=== PATIENT | male | born 1985 | race Caucasian/White ===

== ENCOUNTER 2016-09-25 18:50 | Emergency (ER) | payer MEDICAID ==
[2016-09-25] MEDS ORDERED: DIPH/PERTUSS(ACELL)/TETANUS VAC/PF 0.5 ML SYR (>=10YO) IM ONE (20:41)
--- NOTE | 2016-09-25 20:46 | ER Document Report ---
ED Wound - General Chief Complaint: Laceration to R big toe Stated Complaint: LACERATION TO RIGHT BIG TOE Time Seen by Provider: 09/25/16 20:21 Notes: The patient was a 31-year-old male who presents with a laceration on the top of his right toe after a sharp object cut him while working in the lawn. When his tetanus status was. Denies heavy bleeding, numbness or tingling. TRAVEL OUTSIDE OF THE [place] IN LAST 30 DAYS: No - Related Data Allergies/Adverse Reactions: No Known Allergies Allergy (Verified 12/29/14 13:28) Home Medications: Current Home Medications No Home Medications 09/25/16 [History] Past Medical History - General Information source: Patient - Social History Smoking Status: Unknown if Ever Smoked Family History: None, Reviewed & Not Pertinent, Malignancy Renal/ Medical History: Reports: Hx Kidney Stones. Denies: Hx Peritoneal Dialysis Musculoskeltal Medical History: Reports Hx Musculoskeletal Trauma Traumatic Medical History: Reports: Hx Fractures - wrist Past Surgical History: Reports: Hx Herniorrhaphy, Hx Inguinal Hernia - Immunizations Immunizations up to date: Yes Hx Diphtheria, Pertussis, Tetanus Vaccination: Yes Review of Systems - Review of Systems Notes: REVIEW OF SYSTEMS: CONSTITUTIONAL: -fevers, -chills EENT: -eye pain, -difficulty swallowing, -nasal congestion CARDIOVASCULAR:-chest pain, -syncope. RESPIRATORY: -cough, -SOB GASTROINTESTINAL: -abdominal pain, -nausea, -vomiting, -diarrhea GENITOURINARY: -dysuria, -hematuria MUSCULOSKELETAL: -back pain, -neck pain SKIN: +right toe lac HEMATOLOGIC: -easy bruising or bleeding. LYMPHATIC: -swollen, enlarged glands. NEUROLOGICAL: -altered mental status or loss of consciousness, -headache, - neurologic symptoms PSYCHIATRIC: -anxiety, -depression. ALL OTHER SYSTEMS REVIEWED AND NEGATIVE. Physical Exam - Vital signs Vitals: Temp Pulse Resp BP Pulse Ox 98.4 F 69 16 148/95 H 98 09/25/16 19:01 09/25/16 19:01 09/25/16 19:01 09/25/16 19:01 09/25/16 19:01 - Notes Notes: PHYSICAL EXAMINATION: GENERAL: Well-appearing, well-nourished and in no acute distress. HEAD: Atraumatic, normocephalic. EYES: Pupils equal round and reactive to light, extraocular movements intact, sclera anicteric, conjunctiva are normal. ENT: nares patent, oropharynx clear without exudates. Moist mucous membranes. NECK: Normal range of motion, supple without lymphadenopathy LUNGS: Breath sounds clear to auscultation bilaterally and equal. No wheezes rales or rhonchi. HEART: Regular rate and rhythm without murmurs ABDOMEN: Soft, nontender, normoactive bowel sounds. No guarding, no rebound. No masses appreciated. EXTREMITIES: Right big toe with 2 cm superficial laceration on dorsal aspect of toe, normal range of motion, no pitting or edema. No cyanosis. NEUROLOGICAL: Cranial nerves grossly intact. Normal speech, normal gait. Normal sensory and motor exams. PSYCH: Normal mood, normal affect. Course - Re-evaluation Re-evalutation: Superficial laceration repaired and tetanus updated. No nailbed involvement. Instructed patient about watching for signs of infection and he understands. - Vital Signs Vital signs: Temp Pulse Resp BP Pulse Ox 98.4 F 69 16 148/95 H 98 09/25/16 19:01 09/25/16 19:01 09/25/16 19:01 09/25/16 19:01 09/25/16 19:01 Procedures - Laceration/Wound Repair Right Great toe Time completed: 21:00 Wound length (cm): 2 Wound's Depth, Shape: Superficial, Linear Laceration pre-procedure: Chloraprep applied Wound explored: Clean Irrigated w/ Saline (mLs): 1,000 Wound Repaired With: Steri-strips, Dermabond Post-procedure wound care: Sterile dressing applied Post-procedure NV exam normal: Yes Complications: No Discharge - Discharge Clinical Impression: Laceration of toe Qualifiers: Encounter type: initial encounter Toe: great toe Damage to nail status: without damage Foreign body presence: without foreign body Laterality: right Qualified Code(s): S91.111A - Laceration without foreign body of right great toe without damage to nail, initial encounter Condition: Good Disposition: HOME, SELF-CARE Additional Instructions: NON-SUTURED LACERATION: Your laceration did not require suturing. Some lacerations cannot be sutured because of increased infection risk, while others simply don't need stitches because they are shallow or very short. Your injury should be protected while it heals. Usually complete healing takes 10 to 14 days. Keep the dressing clean and dry, and change it every day. If you notice increasing pain, redness, swelling, drainage, or tender lumps in the armpit or groin above the injury, infection may be present. You should call the doctor at once. SOAP CLEANSING: Gently wash the wound daily using a mild soap (like Ivory, Phisoderm, Neutrogena). Use warm water, rubbing gently until all debris, ooze, and crusting have been washed from the wound. Allow to dry briefly (about 10 minutes) after cleaning. Repeat this cleansing at least three times a day for the first two days and then once or twice a day. ANTIBIOTIC OINTMENT PROTECTION: Your wounds are such that dressing them is not practical or optional. After cleansing, you should apply a thin coating of antibiotic ointment ( Bacitracin, not Neosporin) to the wounds at least three times daily. This lessens infection risk, and may decrease the amount of scarring. Use a q-tip or dull butter knife, not your finger, to apply this ointment. Any debris or ooze which builds up in the ointment should be gently rubbed off with a sterile gauze pad. Harder crusting may need to be gently scrubbed off with a clean wash cloth with soap and warm water, perhaps applying a warm, wet wash cloth to the wound for ten minutes first. Development of redness, severe itching, or blistering may mean allergy to the ointment. See the doctor. TETANUS IMMUNIZATION GIVEN: You have been given an immunization against tetanus. Please record this in your records. In general, a booster is needed only once every 10 years. The tetanus shot protects against tetanus or "lockjaw," which is a complication of certain wound infections (the tetanus shot cannot protect against the actual infection). The immunization site may become warm and red due to local reaction. If this occurs, apply warm compresses and take aspirin or ibuprofen to reduce inflammation and discomfort. Return for evaluation if the reaction becomes severe. FOLLOW-UP CARE: If you have been referred to another physician for follow-up care, call that physicians office for an appointment as you were instructed. If you experience a significant change in your laceration, or if you are concerned there may be an infection (swelling, redness, drainage, increasing tenderness, red streaks, tender lumps in the armpit or groin above the laceration, or fever) , return to the Emergency Department immediately re-evaluation. Forms: Elevated Blood Pressure
[2016-09-25] MEDS ORDERED: IBUPROFEN 600 MG TABLET PO ONE (20:58)
[2016-09-25 21:22] VITALS: BP 132/86
== END 2016-09-25 21:23 | disposition home or self-care (01) ==
LOC: ER 18:50
DX: S91.111A Laceration without foreign body of right great toe without damage to nail, initial encounter (principal); W27.8XXA Contact with other nonpowered hand tool, initial encounter; Y93.H9 Activity, other involving exterior property and land maintenance, building and construction; Z23 Encounter for immunization
CPT/HCPCS: 90471; 90715; 99283

== ENCOUNTER 2017-07-18 13:38 | Emergency (ER) | payer SELFPAY ==
[2017-07-18 13:56] VITALS: BP 123/74
[2017-07-18] MEDS ORDERED: IBUPROFEN 800 MG TABLET PO ONE (14:32)
[2017-07-18] MEDS ORDERED: BUPIVACAINE HCL 0.5 % INJ/PF 30 ML SDV INJ ONE (14:32)
[2017-07-18] MEDS ORDERED: PENICILLIN V POTASSIUM 500 MG TABLET PO ONE (14:32)
--- NOTE | 2017-07-18 14:59 | ER Document Report ---
HPI - HPI Pain Level: 4 Context: Patient is a 31-year-old male presents emergency department complaining of right lower toothache. Patient had his right lower wisdom tooth pulled on Sunday and was discharged without any antibiotics or pain medication. He admits to pain in that area. He has been following his weaning instructions as directed. He has not been smoking though he is a pack-a-day smoker. Denies any alcohol or drug use. Denies any fevers or chills, facial swelling. Past Medical History - Social History Smoking Status: Current Every Day Smoker Family History: None, Reviewed & Not Pertinent, Malignancy Renal/ Medical History: Reports: Hx Kidney Stones. Denies: Hx Peritoneal Dialysis Musculoskeltal Medical History: Reports Hx Musculoskeletal Trauma Traumatic Medical History: Reports: Hx Fractures - wrist Past Surgical History: Reports: Hx Herniorrhaphy, Hx Inguinal Hernia - Immunizations Immunizations up to date: Yes Hx Diphtheria, Pertussis, Tetanus Vaccination: Yes Vertical Provider Document - CONSTITUTIONAL Agree With Documented VS: Yes Notes: PHYSICAL EXAM GENERAL: Alert, interacts well. HEENT: NCAT, MMM, Uvula midline. Airway patent. No evidence of tonsillar enlargement, peritonsillar abscess, retropharyngeal abscess. #32 socket without purulent drianage, gingival inflammation. NEUROLOGICAL: Alert and oriented x4. Normal speech. PSYCH: Normal affect, normal mood. SKIN: Warm, dry, normal turgor. No rashes or lesions noted. - INFECTION CONTROL TRAVEL OUTSIDE OF THE [place] IN LAST 30 DAYS: No Course - Re-evaluation Re-evalutation: 07/18/17 14:49 Patient is a 31-year-old male who is hemodynamically stable, no acute distress afebrile. No evidence of periodontal abscess, purulent drainage. Presentation is consistent with dry socket. Discussed with patient pain management home and will discharge him on antibiotics given nature of inflamed gingival tissue. Discussed with him to continue with his wound care per recommendation from his dentist and to continue to avoid cigarette use. Discussed with him strict return precautions otherwise will discharge home with prescription Motrin and penicillin. - Vital Signs Vital signs: Temp Pulse Resp BP Pulse Ox 99.0 F 57 L 16 123/74 99 07/18/17 13:54 07/18/17 13:54 07/18/17 13:54 07/18/17 13:54 07/18/17 13:54 Procedures - Additional Procedures dental block Additional Procedures: Other - Patient received a 5 cc 0.5% bupivacaine inferior alveolar dental block of the right lower jaw with complete resolution of his pain and no complications Discharge - Discharge Clinical Impression: Dry socket Condition: Good Disposition: HOME, SELF-CARE Additional Instructions: You have been seen for dental pain. It is very important that you follow-up with a dentist for definitive care. Please return if you develop fever greater than 101, swelling in your face, vomiting, difficulty breathing or swallowing, or any other symptoms that are concerning to you. For pain you should take ibuprofen as directed Prescriptions: Ibuprofen [Motrin 800 mg Tablet] 800 mg PO Q8H PRN #30 tab PRN Reason: Penicillin V Potassium [Penicillin Vk 500 mg Tablet] 500 mg PO TID 7 Days #21 tablet
== END 2017-07-18 14:50 | disposition home or self-care (01) ==
LOC: ER 13:38
PROC: 3E0T3BZ Introduction of Anesthetic Agent into Peripheral Nerves and Plexi, Percutaneous Approach (ICD-10-PCS; principal; 2017-07-18)
DX: M27.3 Alveolitis of jaws (principal); F17.200 Nicotine dependence, unspecified, uncomplicated; Z87.442 Personal history of urinary calculi
CPT/HCPCS: 99282; 64400; J3490

== ENCOUNTER 2017-10-31 09:44 | Emergency (ER) | payer SELFPAY ==
[2017-10-31 09:50] VITALS: BP 123/79
--- NOTE | 2017-10-31 10:17 | ER Document Report ---
HPI - HPI Patient complains to provider of: Left nipple pain Pain Level: 2 Context: Patient is a 32-year-old healthy male complaining of pain under his left nipple 3 days. Patient denies any trauma, fever, swelling or redness. Patient does have a history of a cyst in that area several years ago. Associated Symptoms: None Exacerbated by: Denies Relieved by: Denies - ROS Systems Reviewed and Negative: Yes All other systems reviewed and negative - CARDIOVASCULAR Cardiovascular: REPORTS: Chest pain - nipple Past Medical History - General Information source: Patient - Social History Smoking Status: Current Every Day Smoker Frequency of alcohol use: None Drug Abuse: None Lives with: Family Family History: None, Reviewed & Not Pertinent, Malignancy Patient has suicidal ideation: No Patient has homicidal ideation: No Renal/ Medical History: Reports: Hx Kidney Stones. Denies: Hx Peritoneal Dialysis Musculoskeletal Medical History: Reports Hx Musculoskeletal Trauma Traumatic Medical History: Reports: Hx Fractures - wrist Past Surgical History: Reports: Hx Herniorrhaphy, Hx Inguinal Hernia - Immunizations Immunizations up to date: Yes Hx Diphtheria, Pertussis, Tetanus Vaccination: Yes Vertical Provider Document - CONSTITUTIONAL Agree With Documented VS: Yes Exam Limitations: No Limitations - INFECTION CONTROL TRAVEL OUTSIDE OF THE [place] IN LAST 30 DAYS: No - HEENT HEENT: Atraumatic, PERRLA - NECK Neck: Normal Inspection, Supple - RESPIRATORY Respiratory: Breath Sounds Normal, No Respiratory Distress Notes: Positive focal tenderness under left area left. No dimpling or discharge. No palpable mass. No erythema to surrounding area - CARDIOVASCULAR Cardiovascular: Regular Rate, Regular Rhythm - GI/ABDOMEN Gastrointestinal: Abdomen Soft - MUSCULOSKELETAL/EXTREMETIES Musculoskeletal/Extremeties: MAEW - NEURO Level of Consciousness: Awake, Alert, Appropriate - DERM Integumentary: Warm, Dry Course - Re-evaluation Re-evalutation: 10/31/17 10:14 No breast abscess or cellulitis appreciated. But patient is focally tender under that left Ladi. I will prescribe a short course of antibiotics prophylactically and provide ibuprofen for discomfort. Patient instructed to observe the area closely and if any redness or swelling occur follow-up with primary care or return to the ED. Home care, primary care follow-up and ED return precautions were discussed with patient. Patient is agreeable with plan and stable for discharge - Vital Signs Vital signs: Temp Pulse Resp BP Pulse Ox 97.6 F 65 14 123/79 100 07/18/18 09:48 10/31/17 09:48 10/31/17 09:48 10/31/17 09:48 10/31/17 09:48 Discharge - Discharge Clinical Impression: Breast pain, left Condition: Stable Disposition: HOME, SELF-CARE Instructions: Anti-Inflammatory Medication ([facility]), Chest Wall Pain ([facility]), Antibiotic Therapy ([facility]) Additional Instructions: Please observe the area closely for any redness or swelling Follow-up with primary care or return to the ED for any worsening Take medications as prescribed You may apply warm compresses to the area for comfort Prescriptions: Cephalexin Monohydrate [Keflex 500 mg Capsule] 500 mg PO QID #20 capsule Ibuprofen [Motrin 800 Mg Tablet] 800 mg PO Q6H #20 tablet
== END 2017-10-31 10:27 | disposition home or self-care (01) ==
LOC: ER 09:44
DX: N64.4 Mastodynia (principal); F17.200 Nicotine dependence, unspecified, uncomplicated
CPT/HCPCS: 99282

== ENCOUNTER 2018-12-15 16:35 | Emergency (ER) | payer SELFPAY ==
[2018-12-15 16:46] VITALS: BP 115/69
--- NOTE | 2018-12-15 18:47 | ER Document Report ---
HPI - HPI Patient complains to provider of: right forearm tingling/weakness Time Seen by Provider: 12/15/18 17:47 Onset: This morning Onset/Duration: Persistent Quality of pain: No pain Severity: Mild Context: 33 Yr old male pt, with the listed pmh, here for right forearm/hand weakness and tingling since this morning. unsure if he slept wrong or over did it. 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 he is right handed. no pain. no other numbness, weakness or tingling. no ams. no fevers, marinelli, or neck pain. no surgeries on this extremity. hasn't taken anything for his sx. no hx of this before. hasn't sought care until now. no pain anywhere else. pt able to walk. denies intoxication. sx worse with movement and palpation. better with rest. no other fall or trauma or associated sx. no other complaints at this time. no hx of carpal tunnel or dequervains. Exacerbated by: Movement Relieved by: Remaining still Similar symptoms previously: No Recently seen / treated by doctor: No - ROS Systems Reviewed and Negative: Yes All other systems reviewed and negative - To include 10 systems, unless mentioned in the hpi. Past Medical History - General Information source: Patient - Social History Smoking Status: Current Every Day Smoker Chew tobacco use (# tins/day): No Frequency of alcohol use: None Drug Abuse: None Lives with: Family Family History: Malignancy Patient has suicidal ideation: No Patient has homicidal ideation: No Renal/ Medical History: Reports: Hx Kidney Stones. Denies: Hx Peritoneal Dialysis Musculoskeletal Medical History: Reports Hx Musculoskeletal Trauma Traumatic Medical History: Reports: Hx Fractures - left wrist Past Surgical History: Reports: Hx Herniorrhaphy, Hx Inguinal Hernia - Immunizations Immunizations up to date: Yes Hx Diphtheria, Pertussis, Tetanus Vaccination: Yes Vertical Provider Document - CONSTITUTIONAL Agree With Documented VS: Yes Exam Limitations: No Limitations General Appearance: No Apparent Distress Notes: GENERAL_APPEARANCE: alert and oriented x 3, mood and affect wnl, cooperative, no obvious discomfort. Pleasant, young athletic appearing white male, smiling, speaking in full sentences, in no sign of pain or resp distress, easily sitting up, mother at bedside VITALS: reviewed, see vital signs table. HEAD: no_swelling\tenderness on the head, normocephalic, atraumatic NECK: supple, no_neck_tenderness. no midline ttp. no step offs or deformities. full rom and full strength. no sign of central cord syndrome, meningitis, or spinal cord involvement HEART: RRR LUNGS: CTAB, good air exchange diffusely BACK: no_back_tenderness EXTREMITIES: good pulse in all extremities, right arm: mild ttp over right brachioradialus proximally, he has no erythema, no swelling or atrophy, no other tenderness and no_abrasions\lacerations other than as noted. 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 Normal gait. brisk cap refill. no other shortening or rotation of the limb or obvious deformities to suggest trauma unless otherwise noted. no other swelling or ttp. neg kanavel sign. neg snuff box ttp. neg tinel and phalen. neg finklestein. no sign of gout, septic jt, or compartment syndrome. SKIN: warm, dry, good_color. no rash. no other grossly visible overlying skin changes to suggest trauma NEURO: cerebellar function intact, motor_intact and sensory_intact in injured_extremity. cranial nerves 2-12 intact - INFECTION CONTROL TRAVEL OUTSIDE OF THE [place] IN LAST 30 DAYS: No Course - Re-evaluation Re-evalutation: 12/15/18 18:43 Pt here for likely right radial nerve palsy. He was placed in a velcro cock-up wrist splint to wear for the next few days as needed for comfort or until seen by ortho. Will discharge him with naproxen. Advised no other NSAIDs with this. Advised rice therapy. Advised to follow-up with Ortho closely to ensure resolution of symptoms. advised to f/u with pcp/ortho in 1-2 days. return for any worsening symptoms. vss. well appearing. satting well on ra. neurononfocal unless mentioned otherwise. pt understands and agrees to plan. On reexam, pt improved with tx listed. remained stable. nontoxic. well appearing. pain controlled. tolerating po. requesting to go home. neurononfocal unless mentioned otherwise. Documentation achieved through voice recording which may lead to some occasional accidental typographical errors. Extensive efforts have been made to proof read documentation to make sure these are the least as possible. Category Date Time Status Splint [Immobilize Extrem/Crutch (ED)] NOW Care 12/15/18 18:42 Ordered - Vital Signs Vital signs: Temp Pulse Resp BP Pulse Ox 98.4 F 56 L 15 115/69 98 12/15/18 16:45 12/15/18 16:45 12/15/18 16:45 12/15/18 16:45 12/15/18 16:45 Discharge - Discharge Clinical Impression: Acute radial nerve palsy of right upper extremity Condition: Good Disposition: HOME, SELF-CARE Instructions: Radiculopathy ([facility]) Additional Instructions: Follow-up with PCP/ortho in 1 to 2 days. Return for any worsening symptoms. no other nsaids with the naproxen. rest and ice the area. wear the splint as needed for comfort for the next few days or until seen by ortho. Prescriptions: Naproxen 500 mg PO BID PRN #20 tablet PRN Reason: Referrals: LUI ANDRES JR, [ACTIVE PROVISIONAL STAFF] - Follow up in 3-5 days
== END 2018-12-15 18:59 | disposition home or self-care (01) ==
LOC: ER 16:35
DX: G56.31 Lesion of radial nerve, right upper limb (principal); R20.2 Paresthesia of skin; R53.1 Weakness; F17.200 Nicotine dependence, unspecified, uncomplicated
CPT/HCPCS: 99283; L3908

== ENCOUNTER 2019-01-07 20:25 | Emergency (ER) | payer SELFPAY ==
[2019-01-07] MEDS ORDERED: TETRACAINE HCL 0.5% OPH SOLN 4 ML OS ONE (21:09)
--- NOTE | 2019-01-07 21:10 | ER Document Report ---
ED Medical Screen (RME) - General Chief Complaint: Foreign Body in Eye Stated Complaint: PIECE OF WOOD IN LEFT EYE Time Seen by Provider: 01/07/19 21:07 Mode of Arrival: Ambulatory Information source: Patient Notes: This 33-year-old male presents to emergency department with possible foreign body in his left eye. Reports he was cutting wood some slipped in his left eye. He reports he may have gotten it out but his eye is still irritated. Does not wear contacts. I have greeted and performed a rapid initial assessment of this patient. A comprehensive ED assessment and evaluation of the patient, analysis of test results and completion of the medical decision making process will be conducted by additional ED providers. Dictation of this chart was performed using voice recognition software; therefore, there may be some unintended grammatical errors. TRAVEL OUTSIDE OF THE [place] IN LAST 30 DAYS: No - Related Data Allergies/Adverse Reactions: No Known Allergies Allergy (Verified 12/15/18 16:36) Past Medical History - Social History Chew tobacco use (# tins/day): No Frequency of alcohol use: None Drug Abuse: None Renal/ Medical History: Reports: Hx Kidney Stones. Denies: Hx Peritoneal Dialysis Musculoskeltal Medical History: Reports Hx Musculoskeletal Trauma Traumatic Medical History: Reports: Hx Fractures - left wrist Past Surgical History: Reports: Hx Herniorrhaphy, Hx Inguinal Hernia - Immunizations Immunizations up to date: Yes Hx Diphtheria, Pertussis, Tetanus Vaccination: Yes Physical Exam - Vital signs Vitals: Temp Pulse Resp BP Pulse Ox 98.0 F 71 16 125/83 98 01/07/19 20:41 01/07/19 20:41 01/07/19 20:41 01/07/19 20:41 01/07/19 20:41 Course - Vital Signs Vital signs: Temp Pulse Resp BP Pulse Ox 98.0 F 71 16 125/83 98 01/07/19 20:41 01/07/19 20:41 01/07/19 20:41 01/07/19 20:41 01/07/19 20:41
--- NOTE | 2019-01-07 23:10 | ER Document Report ---
ED General - General Chief Complaint: Foreign Body in Eye Stated Complaint: PIECE OF WOOD IN LEFT EYE Time Seen by Provider: 01/07/19 21:07 Mode of Arrival: Ambulatory TRAVEL OUTSIDE OF THE [place] IN LAST 30 DAYS: No - HPI Notes: 33-year-old male presents with left eye redness pain. 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 Since he has had increasing in gradual onset redness and burning. Moderate pain, throbbing, nonradiating. No visual changes. Tetanus up-to-date within 5 years. Worse with light. No other modifying factors, no other associated symptoms, no other provocative or palliative factors. - Related Data Allergies/Adverse Reactions: No Known Allergies Allergy (Verified 12/15/18 16:36) Past Medical History - General Information source: Patient - Social History Smoking Status: Current Every Day Smoker Chew tobacco use (# tins/day): No Frequency of alcohol use: None Drug Abuse: None Family History: None, Reviewed & Not Pertinent, Malignancy Patient has suicidal ideation: No Patient has homicidal ideation: No - Medical History Medical History: Negative Renal/ Medical History: Reports: Hx Kidney Stones. Denies: Hx Peritoneal Dialysis Musculoskeletal Medical History: Reports Hx Musculoskeletal Trauma Traumatic Medical History: Reports: Hx Fractures - left wrist Past Surgical History: Reports: Hx Herniorrhaphy, Hx Inguinal Hernia - Immunizations Immunizations up to date: Yes Hx Diphtheria, Pertussis, Tetanus Vaccination: Yes Review of Systems - Review of Systems Notes: Review of systems as in history of present illness, otherwise no significant headache, chest pain, abdominal pain. Physical Exam - Vital signs Vitals: Temp Pulse Resp BP Pulse Ox 98.0 F 71 16 125/83 98 01/07/19 20:41 01/07/19 20:41 01/07/19 20:41 01/07/19 20:41 01/07/19 20:41 - Notes Notes: General: Well devloped, no acute distress. HEENT: Normocephalic, atraumatic. Pupils equal round reactive to light. Mucosa moist. No JVD. Chest: No trauma, normal excursion. Respiratory: Good air exchange, normal excursion. Cardiac: Regular rhythm Abdomen: Soft, benign. Nondistended. Back: No asymmetry or gross abnormality. Motor: Grossly normal power and tone. Neurologic: Alert, nonfocal. Vascular: Well perfused Skin: No petechiae or purpura Ocular exam: Conjunctival injection is noted. No foreign body, lids are everted, no foreign body. No Piyush sign. No dye uptake with floor seen staining, no cell or flare - HEENT Visual acuity- Right eye: 20/20 Visual acuity- Left eye: 20/20 Visual acuity- Both eyes: 20/20 Corrective lenses worn: No Course - Re-evaluation Re-evalutation: 01/07/19 23:08 Well-appearing male with traumatic conjunctivitis, no evidence of foreign body or corneal abrasion. No evidence of perforation. Will treat proactively with antibiotic eyedrops, outpatient follow-up. - Vital Signs Vital signs: Temp Pulse Resp BP Pulse Ox 98.0 F 71 16 125/83 98 01/07/19 20:41 01/07/19 20:41 01/07/19 20:41 01/07/19 20:41 01/07/19 20:41 Discharge - Discharge Clinical Impression: Eye trauma, superficial Qualifiers: Encounter type: initial encounter Laterality: left Qualified Code(s): S05.8X2A - Other injuries of left eye and orbit, initial encounter Condition: Good Disposition: HOME, SELF-CARE Instructions: Conjunctivitis ([facility]) Prescriptions: Na Sulfacetm/Prednisol AC [Blephamide Eye Drops] 2 drop OS Q6 7 Days drops.susp
[2019-01-07 23:29] VITALS: BP 120/81
== END 2019-01-07 23:29 | disposition home or self-care (01) ==
LOC: ER 20:25
DX: H10.89 Other conjunctivitis (principal); W20.8XXA Other cause of strike by thrown, projected or falling object, initial encounter; Y93.89 Activity, other specified; F17.200 Nicotine dependence, unspecified, uncomplicated
CPT/HCPCS: 99283; J3490

== ENCOUNTER 2019-06-03 20:44 | Emergency (ER) | payer SELFPAY ==
[2019-06-03 21:00] VITALS: BP 148/84
[2019-06-03] MEDS ORDERED: METHOCARBAMOL 500 MG TABLET PO ONE (22:51)
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
--- NOTE | 2019-06-03 23:33 | RADIOLOGY REPORT (SQ) ---
EXAM DESCRIPTION: XR SHOULDER 2 OR MORE VIEWS COMPLETED DATE/TME: 06/03/2019 22:51 CLINICAL HISTORY: 33 years, Male, right shoulder pain COMPARISON: None. FINDINGS: 3 views of the right shoulder. No acute fracture or dislocation. Normal osseous mineralization. No acute abnormality of visualized right hemithorax. IMPRESSION: 1. No acute fracture or dislocation. copyright 2010 [employer]- All Rights Reserved
== END 2019-06-04 00:15 | disposition home or self-care (01) ==
LOC: ER 20:44
DX: M25.511 Pain in right shoulder (principal); F17.200 Nicotine dependence, unspecified, uncomplicated
CPT/HCPCS: 99283

== ENCOUNTER 2020-02-23 00:48 | Emergency (ER) | payer SELFPAY ==
[2020-02-23] MEDS ORDERED: HYDROCODONE/ACETAMINOPHEN 5-325 MG TABLET PO ONE (01:33)
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
[2020-02-23] MEDS ORDERED: OXYCODONE-ACETAMINOPHEN 5-325 MG TABLET PO ONE (04:45)
[2020-02-23 05:40] VITALS: BP 136/85
== END 2020-02-23 05:55 | disposition home or self-care (01) ==
LOC: ER 00:48
DX: S02.2XXA Fracture of nasal bones, initial encounter for closed fracture (principal); S00.12XA Contusion of left eyelid and periocular area, initial encounter; S50.312A Abrasion of left elbow, initial encounter; S50.311A Abrasion of right elbow, initial encounter; S80.212A Abrasion, left knee, initial encounter; S80.211A Abrasion, right knee, initial encounter; Y00.XXXA Assault by blunt object, initial encounter; Y93.89 Activity, other specified; R42 Dizziness and giddiness; F17.200 Nicotine dependence, unspecified, uncomplicated
CPT/HCPCS: 70450; 70486; 99284